=== PATIENT | male | born 1995 | race Caucasian/White ===

== ENCOUNTER 2019-02-17 20:40 | Emergency (ER) | payer MEDICAID ==
[~2019-02-17] VITALS: Ht 188 cm; Wt 142.7 kg
[2019-02-17 20:45] VITALS: Ht 188 cm; Wt 142.7 kg
[2019-02-17] MEDS ORDERED: LISINOPRIL5 MG PO (20:46)
[2019-02-17 21:55] LABS: BASOPHILS 0.3 % (0-2); EOSINOPHILS 2.7 % (0-7); HEMATOCRIT 41.9 % (42.0-54.0); HEMOGLOBIN 14.8 g/dL (13.5-17.5); IMMATURE GRANULOCYTES 0.3 % (0-5); LYMPHOCYTES 26.2 % (15-50); MCH 30.8 pg (26.0-34.0); MCHC 35.3 g/dL (31.0-37.0); MCV 87.1 fL (80.0-100.0); MEAN PLATELET VOLUME 10.7 fL (7.4-10.4); MONOCYTES 7.6 % (2-11); NEUTROPHILS 62.9 % (40-80); PLATELET COUNT 237 10x3/uL (130-400); RBC 4.81 10x6/uL (4.20-6.10); RDW 12.2 % (11.5-14.5); WBC 8.8 10x3/uL (4.8-10.8)
[2019-02-17] MEDS ORDERED: STERAPRED 5MG 65 M1 PO (22:01)
[2019-02-17 22:02] LABS: INR 1.02 (0.85-1.17); PROTIME 12.9 SECONDS (11.6-15.0)
[2019-02-17 22:10] LABS: ALBUMIN 3.4 g/dL (3.4-5.0); ALKALINE PHOSPHATASE 72 U/L (46-116); ALT (SGPT) 45 U/L (10-68); BILIRUBIN - TOTAL 0.25 mg/dL (0.2-1.3); CALC OSMOLALITY 279 mosm/kg (275-300); CALCIUM 8.5 mg/dL (8.5-10.1); CARBON DIOXIDE 29.4 mmol/L (21.0-32.0); CHLORIDE - SERUM 103 mmol/L (98-107); CREATININE - SERUM 0.7 mg/dL (0.6-1.3); GLUCOSE 165 mg/dL (74-106); POTASSIUM - SERUM 3.9 mmol/L (3.5-5.1); PROTEIN - SERUM 6.5 g/dL (6.4-8.2); SODIUM 139 mmol/L (136-145); UREA NITROGEN 8 mg/dL (7-18); eGFR NON AFRICAN AMERICAN > 90 mL/min (90-120)
[2019-02-17 22:23] LABS: CKMB 0.6 U/L (0.0-3.6); CREATINE KINASE 58 UL (21-232); MAGNESIUM - SERUM 1.8 mg/dL (1.8-2.4); TROPONIN-I < 0.017 ng/mL (0.000-0.060)
[2019-02-17 22:34] VITALS: BP 132/73
== END 2019-02-17 22:39 | disposition home or self-care (01) ==
LOC: D.ER 20:40
PROVIDERS: Family Medicine
DX: L73.2 Hidradenitis suppurativa (principal)